=== PATIENT | female | born 1985 | race Caucasian/White ===

== ENCOUNTER 2017-11-08 19:19 | Emergency (ER) | payer MEDICAID, OTHER ==
[2017-11-08 19:19] VITALS: BMI 26.0
[2017-11-08] MEDS ORDERED: Sodium Chloride 0.9% 1,000 ML IV ONE (19:46)
[2017-11-08] MEDS ORDERED: Dexamethasone 4 mg/1 ml IVP STA (19:46)
[2017-11-08] MEDS ORDERED: Sodium Chloride 0.9% 1,000 ML ONE (20:08)
[2017-11-08 20:28] VITALS: O2SAT 100
[2017-11-08] MEDS ORDERED: DiphenhydrAMINE 50 mg/ml Inj IVP STA (21:27)
[2017-11-08] MEDS ORDERED: DiphenhydrAMINE 50 mg/ml Inj ONE (21:31)
[2017-11-08 21:50] VITALS: BP 126/90; PULSE 110; RESP 27
--- NOTE | 2017-11-08 22:20 | C.PDOC ---
Time Seen by Provider: 11/08/17 19:38 Chief Complaint (Nursing): Allergic Reaction History Per: Patient Onset/Duration Of Symptoms: Hrs (this afternoon) Current Symptoms Are (Timing): Still Present Possible Cause: Food (after drinking Coquito) Associated Symptoms: Trouble Swallowing Home/EMS Treatment: Benadryl Severity: Moderate Additional History Per: Prior Records Past Medical History Reviewed: Historical Data, Nursing Documentation, Vital Signs Vital Signs: Last Vital Signs Temp 98.1 F 11/08/17 19:25 Pulse 110 H 11/08/17 21:49 Resp 27 H 11/08/17 21:49 BP 126/90 11/08/17 21:49 Pulse Ox 100 11/08/17 21:49 - Medical History PMH: No Chronic Diseases Family History: States: Unknown Family Hx - Social History Hx Alcohol Use: Yes Hx Substance Use: No - Immunization History Hx Tetanus Toxoid Vaccination: No Hx Influenza Vaccination: No Hx Pneumococcal Vaccination: No Review Of Systems Except As Marked, All Systems Reviewed And Found Negative. Constitutional: Negative for: Fever, Weakness ENT: Positive for: Throat Swelling. Negative for: Mouth Swelling Respiratory: Negative for: Cough, Shortness of Breath Gastrointestinal: Negative for: Vomiting, Abdominal Pain, Diarrhea Musculoskeletal: Negative for: Neck Pain Skin: Negative for: Rash Neurological: Negative for: Weakness, Numbness Physical Exam - Physical Exam Appears: Non-toxic, No Acute Distress Skin: Normal Color, Warm, Dry, No Rash Head: Atraumatic, Normacephalic Eye(s): bilateral: Normal Inspection, PERRL, EOMI Oral Mucosa: Moist, No Drooling, No Trismus Tongue: Normal Appearing Lips: Normal Appearing Throat: No Erythema, No Exudate, No Drooling, No Mass, Other (edema of uvula and surrounding area) Neck: Normal ROM, Supple Lymphatic: No Adenopathy Cardiovascular: Rhythm Regular Respiratory: Normal Breath Sounds, No Accessory Muscle Use, No Stridor, No Wheezing Gastrointestinal/Abdominal: Soft, No Tenderness Extremity: Normal ROM, No Pedal Edema Neurological/Psych: Oriented x3, Normal Speech, Normal Motor, Normal Sensation ED Course And Treatment O2 Sat by Pulse Oximetry: 100 Pulse Ox Interpretation: Normal Progress Note: Pt feels better and wants to go home right now. Throat swelling has improved. Reevaluation Time: 22:23 Reassessment Condition: Improved Progress - Interventions Interventions:: Observation, Intravenous fluid - Medications Administered Intravenous: Antihistamine (H-1), Corticosteroid, H-2 violetta - Data Reviewed Data Reviewed: Old records - Patient Status Patient status: Mostly improved - Continuity of Care Discussed patient case with:: Patient, ED Nurse - Patient Plan Patient Plan: Discharge, F/U with PCP Disposition Counseled Patient/Family Regarding: Diagnosis, Need For Followup - Disposition Referrals: Antoine Davis [Primary Care Provider] - Disposition: HOME/ ROUTINE Disposition Time: 22:24 Condition: IMPROVED Additional Instructions: Follow up with your doctor. Return to the ER immediately if you develop trouble swallowing, talking or breathing. Prescriptions: DiphenhydrAMINE [Benadryl] 25 mg PO Q4 PRN #30 cap PRN Reason: Allergy Symptoms Instructions: Angioedema (ED) - Clinical Impression Clinical Impression: Uvular edema
[2017-11-08 22:28] VITALS: TEMP 98.6
== END 2017-11-08 22:36 | disposition home or self-care (01) ==
LOC: SUPCPDRO 19:19 → C.ER 19:19
DX: K13.79 Other lesions of oral mucosa (principal)
CPT/HCPCS: 96361; 96374; 96375; 99285; J1100; J1200; J7040